=== PATIENT | male | born 1945 | race Caucasian/White ===

== ENCOUNTER 2022-08-23 12:51 | Inpatient (IN) | payer OTHER ==
[~2022-08-23] VITALS: Ht 175.3 cm; Wt 156.9 kg
[2022-08-23 12:55] VITALS: BP_SYST 102
[2022-08-23 14:28] LABS: BASOPHILS % (AUTO) 0.3 % (0.0-2.0); HEMATOCRIT 41.4 % (36-54); HEMOGLOBIN 13.6 g/dL (14.0-18.0); LYMPHOCYTES # (AUTO) 0.3 K/uL (1.0-5.5); LYMPHOCYTES % (AUTO) 4.2 % (20.5-51.5); MEAN CORPUSCULAR HEMOGLOBIN 31 pg (27-31); MEAN CORPUSCULAR HGB CONC 33 % (32-36); MEAN CORPUSCULAR VOLUME 95 fL (79.0-98.0); MONOCYTES # (AUTO) 0.7 K/uL (0.0-1.0); MONOCYTES % (AUTO) 12.2 % (1.7-9.3); NEUTROPHILS # (AUTO) 5.1 K/uL (1.8-7.7); NEUTROPHILS % (AUTO) 83.3 % (40.0-70.0); PLATELET COUNT (AUTO) 124 K/uL (130-430); RED BLOOD CELL COUNT(AUTO) 4.35 MIL/uL (4.2-6.2); RED CELL DISTRIBUTION WIDTH 13.7 % (9.0-15.0); WHITE BLOOD COUNT (AUTO) 6.1 K/uL (4.8-10.8)
[2022-08-23 14:44] LABS: ANION GAP 6 (5-15); CALCIUM 8.9 mg/dL (8.4-11.0); CHLORIDE 103 mmol/L (98-107); GLUCOSE 115 mg/dL (70-99); UREA NITROGEN, BLOOD 29 mg/dL (8-21)
[2022-08-23 15:02] LABS: ALANINE AMINOTRANSFERASE 23 U/L (12-78); ALBUMIN 3.2 g/dL (3.4-4.8); ASPARTATE AMINOTRANSFERASE 40 U/L (10-37); TOTAL BILIRUBIN 0.4 mg/dL (0.0-1.0)
[2022-08-23 15:29] LABS: CKMB RELATIVE INDEX 0.6 (0.0-2.9); CREATINE KINASE MB 7.3 ng/mL (0-3.6)
[2022-08-23] MEDS ORDERED: SACU1TAB7 PO (15:48)
[2022-08-23] MEDS ORDERED: EMPA10TA PO (15:48)
[2022-08-23] MEDS ORDERED: LIP10 PO (15:48)
[2022-08-23] MEDS ORDERED: FURO-150 PO (15:52)
[2022-08-23] MEDS ORDERED: AMIO200T66 PO (15:52)
[2022-08-23] MEDS ORDERED: TAMS-11 PO (15:52)
[2022-08-23] MEDS ORDERED: VITD2000 PO (15:52)
[2022-08-23] MEDS: NACL 0.9% 1,000 ML IV SCH (16:00)
[2022-08-23] MEDS ORDERED: IPRATROPIUM/ALBUTEROL SULFATE 3 ML AMPUL.NEB (DUONEB) INH PRN (17:30)
[2022-08-23 19:41] LABS: BILIRUBIN,URINE NEGATIVE (NEGATIVE); BLOOD, URINE 3+ (NEGATIVE); CLARITY/URINE CLEAR (CLEAR); COLOR,URINE YELLOW (YELLOW); GLUCOSE,URINE 2+ (NEGATIVE); KETONES,URINE TRACE (NEGATIVE); LEUKOCYTE ESTERASE ,URINE NEGATIVE (NEGATIVE); NITRITE, URINE NEGATIVE (NEGATIVE); PH,URINE 5.5 (5.0-8.0); PROTEIN URINE 1+ (NEGATIVE); UROBILINOGEN,URINE 0.2 (0.2-1.0)
[2022-08-23 19:46] LABS: BACTERIA,URINE FEW /HPF (None Seen); FINE GRANULAR CASTS,URINE 0-10 /LPF (None Seen); HYALINE CASTS, URINE 0-10 /LPF (None Seen); MUCUS,URINE None Seen /LPF (None Seen); RBC,URINE NONE SEEN /HPF (0-3); WBC,URINE 0-3 /HPF (0-3)
[2022-08-23] MEDS ORDERED: FUROSEMIDE 20 MG TABLET PO SCH (21:00)
[2022-08-24] MEDS: ATORVASTATIN 10 MG TABLET PO SCH ×2 (00:45→20:14)
[2022-08-24] MEDS: PANTOPRAZOLE SODIUM 40 MG/VIAL (PROTONIX) IVP SCH ×2 (00:45→10:13)
[2022-08-24] MEDS: TAMSULOSIN HCL 0.4 MG CAP PO SCH ×2 (00:45→20:14)
[2022-08-24] MEDS: NACL 0.9% 1,000 ML IV SCH ×2 (01:02→12:04)
[2022-08-24 09:07] LABS: ANION GAP 9 (5-15); CALCIUM 8.1 mg/dL (8.4-11.0); CHLORIDE 108 mmol/L (98-107); CREATININE 2.32 mg/dL (0.55-1.30); GLUCOSE 94 mg/dL (70-99); UREA NITROGEN, BLOOD 30 mg/dL (8-21)
[2022-08-24 09:11] LABS: BASOPHILS % (AUTO) 0.5 % (0.0-2.0); EOSINOPHILS % (AUTO) 0.3 % (0.0-4.0); HEMATOCRIT 40.3 % (36-54); HEMOGLOBIN 13.3 g/dL (14.0-18.0); LYMPHOCYTES # (AUTO) 0.6 K/uL (1.0-5.5); LYMPHOCYTES % (AUTO) 14.9 % (20.5-51.5); MEAN CORPUSCULAR HEMOGLOBIN 32 pg (27-31); MEAN CORPUSCULAR HGB CONC 33 % (32-36); MEAN CORPUSCULAR VOLUME 96 fL (79.0-98.0); MONOCYTES # (AUTO) 0.7 K/uL (0.0-1.0); MONOCYTES % (AUTO) 16.5 % (1.7-9.3); NEUTROPHILS # (AUTO) 2.9 K/uL (1.8-7.7); NEUTROPHILS % (AUTO) 67.8 % (40.0-70.0); PLATELET COUNT (AUTO) 122 K/uL (130-430); RED CELL DISTRIBUTION WIDTH 13.6 % (9.0-15.0)
[2022-08-24 09:18] LABS: ALANINE AMINOTRANSFERASE 32 U/L (12-78); ALBUMIN 2.9 g/dL (3.4-4.8); ASPARTATE AMINOTRANSFERASE 56 U/L (10-37); CHOLESTEROL 118 mg/dL (<200); HDL CHOLESTEROL 64 mg/dL (>45); PHOSPHORUS 4.3 mg/dL (2.7-4.5); THYROID STIMULATING HORMONE < 0.01 uIu/mL (0.34-4.82); TOTAL BILIRUBIN 0.3 mg/dL (0.0-1.0); TRIGLYCERIDES 58 mg/dL (30-150)
[2022-08-24 09:21] LABS: WHITE BLOOD COUNT (AUTO) 4.3 K/uL (4.8-10.8)
[2022-08-24] MEDS: AMIODARONE HCL 200 MG TABLET PO SCH (10:13)
[2022-08-24] MEDS: CHOLECALCIFEROL (VITAMIN D3) 2,000 UNIT TABLET PO SCH (10:14)
[2022-08-24] MEDS ORDERED: POTASSIUM CHLORIDE 40 MEQ in NS 250 ML IV ONE (10:30)
[2022-08-24 12:00] VITALS: BP_SYST 108
[2022-08-24 12:21] VITALS: BP_SYST 109
[2022-08-24 17:32] LABS: FREE T4 (FREE THYROXINE) 1.8 ng/dl (0.8-1.5)
[2022-08-24 18:57] VITALS: BP_SYST 127
[2022-08-24 20:00] VITALS: BP_SYST 112
[2022-08-24] MEDS: SACUBITRIL/VALSARTAN 24 MG-26 MG 1 TABLET PO SCH (20:14)
[2022-08-25] VITALS: BP_SYST 110
[2022-08-25] MEDS: NACL 0.9% 1,000 ML IV SCH (05:42)
[2022-08-25 08:35] LABS: BASOPHILS % (AUTO) 0.5 % (0.0-2.0); EOSINOPHILS % (AUTO) 0.8 % (0.0-4.0); HEMATOCRIT 38.6 % (36-54); HEMOGLOBIN 12.7 g/dL (14.0-18.0); LYMPHOCYTES # (AUTO) 0.6 K/uL (1.0-5.5); LYMPHOCYTES % (AUTO) 12.2 % (20.5-51.5); MEAN CORPUSCULAR HEMOGLOBIN 31 pg (27-31); MEAN CORPUSCULAR HGB CONC 33 % (32-36); MEAN CORPUSCULAR VOLUME 95 fL (79.0-98.0); MONOCYTES # (AUTO) 0.6 K/uL (0.0-1.0); MONOCYTES % (AUTO) 13.6 % (1.7-9.3); NEUTROPHILS # (AUTO) 3.3 K/uL (1.8-7.7); NEUTROPHILS % (AUTO) 72.9 % (40.0-70.0); PLATELET COUNT (AUTO) 110 K/uL (130-430); RED BLOOD CELL COUNT(AUTO) 4.05 MIL/uL (4.2-6.2); RED CELL DISTRIBUTION WIDTH 13.6 % (9.0-15.0); WHITE BLOOD COUNT (AUTO) 4.5 K/uL (4.8-10.8)
[2022-08-25 08:42] VITALS: BP_SYST 124
[2022-08-25 09:19] LABS: ALANINE AMINOTRANSFERASE 38 U/L (12-78); ALBUMIN 2.7 g/dL (3.4-4.8); ANION GAP 8 (5-15); ASPARTATE AMINOTRANSFERASE 56 U/L (10-37); CALCIUM 8.2 mg/dL (8.4-11.0); CHLORIDE 107 mmol/L (98-107); CREATININE 2.41 mg/dL (0.55-1.30); GLUCOSE 97 mg/dL (70-99); PHOSPHORUS 3.7 mg/dL (2.7-4.5); TOTAL BILIRUBIN 0.3 mg/dL (0.0-1.0); UREA NITROGEN, BLOOD 35 mg/dL (8-21)
[2022-08-25] MEDS: AMIODARONE HCL 200 MG TABLET PO SCH (09:48)
[2022-08-25] MEDS: CHOLECALCIFEROL (VITAMIN D3) 2,000 UNIT TABLET PO SCH (09:48)
[2022-08-25] MEDS: PANTOPRAZOLE SODIUM 40 MG/VIAL (PROTONIX) IVP SCH (09:49)
[2022-08-25] MEDS: SACUBITRIL/VALSARTAN 24 MG-26 MG 1 TABLET PO SCH ×2 (10:27→20:18)
[2022-08-25 11:43] VITALS: BP_SYST 114
[2022-08-25 16:49] VITALS: BP_SYST 116
[2022-08-25 20:00] VITALS: BP_SYST 107
[2022-08-25] MEDS: TAMSULOSIN HCL 0.4 MG CAP PO SCH (20:17)
[2022-08-25] MEDS: ATORVASTATIN 10 MG TABLET PO SCH (20:17)
[2022-08-26] VITALS: BP_SYST 113
[2022-08-26 08:30] VITALS: BP_SYST 129
[2022-08-26 08:31] VITALS: BP_SYST 113
[2022-08-26 08:32] LABS: ANION GAP 7 (5-15); CALCIUM 7.7 mg/dL (8.4-11.0); CHLORIDE 106 mmol/L (98-107); CREATININE 2.48 mg/dL (0.55-1.30); GLUCOSE 112 mg/dL (70-99); UREA NITROGEN, BLOOD 35 mg/dL (8-21)
[2022-08-26] MEDS: PANTOPRAZOLE SODIUM 40 MG/VIAL (PROTONIX) IVP SCH (09:57)
[2022-08-26] MEDS: CHOLECALCIFEROL (VITAMIN D3) 2,000 UNIT TABLET PO SCH (09:57)
[2022-08-26] MEDS: SACUBITRIL/VALSARTAN 24 MG-26 MG 1 TABLET PO SCH ×2 (09:58→21:00)
[2022-08-26] MEDS: AMIODARONE HCL 200 MG TABLET PO SCH (09:58)
[2022-08-26 12:45] VITALS: BP_SYST 151
[2022-08-26 16:45] VITALS: BP_SYST 115
[2022-08-26] MEDS: NACL 0.9% 1,000 ML IV SCH (16:50)
[2022-08-26 20:00] VITALS: BP_SYST 126
[2022-08-26] MEDS: ATORVASTATIN 10 MG TABLET PO SCH (23:27)
[2022-08-26] MEDS: TAMSULOSIN HCL 0.4 MG CAP PO SCH (23:27)
[2022-08-27 07:01] LABS: BASOPHILS % (AUTO) 0.4 % (0.0-2.0); EOSINOPHILS # (AUTO) 0.1 K/uL (0.0-0.4); EOSINOPHILS % (AUTO) 3.5 % (0.0-4.0); HEMATOCRIT 36.5 % (36-54); LYMPHOCYTES # (AUTO) 0.6 K/uL (1.0-5.5); MEAN CORPUSCULAR HEMOGLOBIN 31 pg (27-31); MEAN CORPUSCULAR HGB CONC 33 % (32-36); MEAN CORPUSCULAR VOLUME 94 fL (79.0-98.0); MONOCYTES # (AUTO) 0.4 K/uL (0.0-1.0); MONOCYTES % (AUTO) 12.7 % (1.7-9.3); NEUTROPHILS # (AUTO) 2.1 K/uL (1.8-7.7); NEUTROPHILS % (AUTO) 65.4 % (40.0-70.0); PLATELET COUNT (AUTO) 94 K/uL (130-430); RED BLOOD CELL COUNT(AUTO) 3.87 MIL/uL (4.2-6.2); RED CELL DISTRIBUTION WIDTH 13.8 % (9.0-15.0); WHITE BLOOD COUNT (AUTO) 3.2 K/uL (4.8-10.8)
[2022-08-27 07:20] LABS: ANION GAP 5 (5-15); CALCIUM 8.1 mg/dL (8.4-11.0); CHLORIDE 108 mmol/L (98-107); GLUCOSE 106 mg/dL (70-99); UREA NITROGEN, BLOOD 42 mg/dL (8-21)
[2022-08-27] MEDS: NACL 0.9% 1,000 ML IV SCH ×2 (07:55→23:55)
[2022-08-27 08:00] VITALS: BP_SYST 139
[2022-08-27] MEDS: PANTOPRAZOLE SODIUM 40 MG/VIAL (PROTONIX) IVP SCH (08:44)
[2022-08-27] MEDS: AMIODARONE HCL 200 MG TABLET PO SCH (08:45)
[2022-08-27] MEDS: CHOLECALCIFEROL (VITAMIN D3) 2,000 UNIT TABLET PO SCH (08:45)
[2022-08-27] MEDS: SACUBITRIL/VALSARTAN 24 MG-26 MG 1 TABLET PO SCH ×2 (08:45→21:05)
[2022-08-27 12:15] VITALS: BP_SYST 124
[2022-08-27 16:30] VITALS: BP_SYST 119
[2022-08-27 20:00] VITALS: BP_SYST 118
[2022-08-27] MEDS: TAMSULOSIN HCL 0.4 MG CAP PO SCH (21:06)
[2022-08-27] MEDS: ATORVASTATIN 10 MG TABLET PO SCH (21:06)
[2022-08-28 00:55] VITALS: BP_SYST 133
[2022-08-28 06:42] LABS: ANION GAP 7 (5-15); CALCIUM 7.8 mg/dL (8.4-11.0); CHLORIDE 108 mmol/L (98-107); CREATININE 2.06 mg/dL (0.55-1.30); GLUCOSE 107 mg/dL (70-99); UREA NITROGEN, BLOOD 39 mg/dL (8-21)
[2022-08-28 08:00] VITALS: BP_SYST 138
[2022-08-28 08:15] LABS: BASOPHILS % (AUTO) 0.5 % (0.0-2.0); EOSINOPHILS # (AUTO) 0.1 K/uL (0.0-0.4); HEMATOCRIT 37.7 % (36-54); HEMOGLOBIN 12.5 g/dL (14.0-18.0); LYMPHOCYTES # (AUTO) 0.5 K/uL (1.0-5.5); LYMPHOCYTES % (AUTO) 14.6 % (20.5-51.5); MEAN CORPUSCULAR HEMOGLOBIN 31 pg (27-31); MEAN CORPUSCULAR HGB CONC 33 % (32-36); MEAN CORPUSCULAR VOLUME 94 fL (79.0-98.0); MONOCYTES # (AUTO) 0.3 K/uL (0.0-1.0); MONOCYTES % (AUTO) 10.1 % (1.7-9.3); NEUTROPHILS # (AUTO) 2.4 K/uL (1.8-7.7); NEUTROPHILS % (AUTO) 70.8 % (40.0-70.0); PLATELET COUNT (AUTO) 96 K/uL (130-430); RED BLOOD CELL COUNT(AUTO) 4.01 MIL/uL (4.2-6.2)
[2022-08-28 08:16] LABS: WHITE BLOOD COUNT (AUTO) 3.5 K/uL (4.8-10.8)
[2022-08-28] MEDS: SACUBITRIL/VALSARTAN 24 MG-26 MG 1 TABLET PO SCH ×2 (10:28→20:58)
[2022-08-28] MEDS: AMIODARONE HCL 200 MG TABLET PO SCH (10:31)
[2022-08-28] MEDS: PANTOPRAZOLE SODIUM 40 MG/VIAL (PROTONIX) IVP SCH (10:32)
[2022-08-28] MEDS: CHOLECALCIFEROL (VITAMIN D3) 2,000 UNIT TABLET PO SCH (10:32)
[2022-08-28 11:35] VITALS: BP_SYST 104
[2022-08-28 16:41] VITALS: BP_SYST 125
[2022-08-28 20:00] VITALS: BP_SYST 144
[2022-08-28] MEDS: TAMSULOSIN HCL 0.4 MG CAP PO SCH (20:57)
[2022-08-28] MEDS: ATORVASTATIN 10 MG TABLET PO SCH (20:57)
[2022-08-29 02:05] VITALS: BP_SYST 93
[2022-08-29] MEDS: DEXAMETHASONE SOD PHOSPHATE 10 MG/ML VIAL IVP SCH (04:45)
[2022-08-29 08:00] VITALS: BP_SYST 127
[2022-08-29 08:15] LABS: ANION GAP 7 (5-15); CALCIUM 8.7 mg/dL (8.4-11.0); CHLORIDE 108 mmol/L (98-107); CREATININE 1.92 mg/dL (0.55-1.30); GLUCOSE 113 mg/dL (70-99); UREA NITROGEN, BLOOD 35 mg/dL (8-21)
[2022-08-29] MEDS: SACUBITRIL/VALSARTAN 24 MG-26 MG 1 TABLET PO SCH ×2 (10:16→22:40)
[2022-08-29] MEDS: PANTOPRAZOLE SODIUM 40 MG/VIAL (PROTONIX) IVP SCH (10:16)
[2022-08-29] MEDS: AMIODARONE HCL 200 MG TABLET PO SCH (10:17)
[2022-08-29] MEDS: CHOLECALCIFEROL (VITAMIN D3) 2,000 UNIT TABLET PO SCH (10:17)
[2022-08-29 13:38] VITALS: BP_SYST 136
[2022-08-29 20:00] VITALS: BP_SYST 136
[2022-08-29] MEDS ORDERED: FUROSEMIDE 40 MG/4 ML VIAL IVP ONE (20:45)
[2022-08-29] MEDS: ALBUMIN HUMAN 25% 50 ML IV SCH (20:45)
[2022-08-29] MEDS ORDERED: SODIUM ZIRCONIUM CYCLOSILICATE 10 GM POWD.PACK PO ONE (21:30)
[2022-08-29] MEDS: PANTOPRAZOLE SODIUM 40 MG TAB PO SCH (21:39)
[2022-08-29] MEDS: TAMSULOSIN HCL 0.4 MG CAP PO SCH (21:39)
[2022-08-29] MEDS: ATORVASTATIN 10 MG TABLET PO SCH (21:40)
[2022-08-30] VITALS: BP_SYST 123
[2022-08-30] MEDS: ALBUMIN HUMAN 25% 50 ML IV SCH ×3 (02:45→18:08)
[2022-08-30] MEDS: DEXAMETHASONE SOD PHOSPHATE 10 MG/ML VIAL IVP SCH (03:22)
[2022-08-30] MEDS: AMIODARONE HCL 200 MG TABLET PO SCH (09:00)
[2022-08-30] MEDS: PANTOPRAZOLE SODIUM 40 MG TAB PO SCH ×2 (09:06→20:13)
[2022-08-30 09:07] VITALS: BP_SYST 95
[2022-08-30] MEDS: SACUBITRIL/VALSARTAN 24 MG-26 MG 1 TABLET PO SCH ×2 (09:07→20:13)
[2022-08-30] MEDS: CHOLECALCIFEROL (VITAMIN D3) 2,000 UNIT TABLET PO SCH (09:07)
[2022-08-30 12:00] VITALS: BP_SYST 100
[2022-08-30] MEDS ORDERED: FUROSEMIDE 40 MG/4 ML VIAL IVP ONE (13:15)
[2022-08-30 16:00] VITALS: BP_SYST 108
[2022-08-30 20:00] VITALS: BP_SYST 122
[2022-08-30] MEDS: TAMSULOSIN HCL 0.4 MG CAP PO SCH (20:12)
[2022-08-30] MEDS: ATORVASTATIN 10 MG TABLET PO SCH (20:12)
[2022-08-31 00:35] VITALS: BP_SYST 97
[2022-08-31] MEDS ORDERED: ALBUMIN HUMAN 25% 100 ML IV ONE (03:43)
[2022-08-31] MEDS: DEXAMETHASONE SOD PHOSPHATE 10 MG/ML VIAL IVP SCH (04:20)
[2022-08-31 06:40] LABS: BASOPHILS % (AUTO) 0.4 % (0.0-2.0); EOSINOPHILS # (AUTO) 0.2 K/uL (0.0-0.4); EOSINOPHILS % (AUTO) 5.5 % (0.0-4.0); HEMATOCRIT 36.7 % (36-54); LYMPHOCYTES # (AUTO) 0.6 K/uL (1.0-5.5); LYMPHOCYTES % (AUTO) 14.3 % (20.5-51.5); MEAN CORPUSCULAR HEMOGLOBIN 31 pg (27-31); MEAN CORPUSCULAR HGB CONC 33 % (32-36); MEAN CORPUSCULAR VOLUME 94 fL (79.0-98.0); MONOCYTES # (AUTO) 0.7 K/uL (0.0-1.0); MONOCYTES % (AUTO) 16.3 % (1.7-9.3); NEUTROPHILS # (AUTO) 2.8 K/uL (1.8-7.7); NEUTROPHILS % (AUTO) 63.5 % (40.0-70.0); PLATELET COUNT (AUTO) 136 K/uL (130-430); RED CELL DISTRIBUTION WIDTH 14.2 % (9.0-15.0); WHITE BLOOD COUNT (AUTO) 4.4 K/uL (4.8-10.8)
[2022-08-31 07:55] LABS: ANION GAP 6 (5-15); CALCIUM 8.4 mg/dL (8.4-11.0); CHLORIDE 108 mmol/L (98-107); CREATININE 3.04 mg/dL (0.55-1.30); GLUCOSE 107 mg/dL (70-99); UREA NITROGEN, BLOOD 52 mg/dL (8-21)
[2022-08-31 08:35] VITALS: BP_SYST 120
[2022-08-31] MEDS: AMIODARONE HCL 200 MG TABLET PO SCH (08:37)
[2022-08-31] MEDS: CHOLECALCIFEROL (VITAMIN D3) 2,000 UNIT TABLET PO SCH (08:38)
[2022-08-31] MEDS: PANTOPRAZOLE SODIUM 40 MG TAB PO SCH (08:38)
[2022-08-31] MEDS: SACUBITRIL/VALSARTAN 24 MG-26 MG 1 TABLET PO SCH (09:02)
[2022-08-31 12:00] VITALS: BP_SYST 123
[2022-08-31] MEDS ORDERED: 0.45% NS 500 ML IV ONE (13:30)
[2022-08-31 16:00] VITALS: BP_SYST 140
[2022-09-01] MEDS: TAMSULOSIN HCL 0.4 MG CAP PO SCH ×2 (00:11→22:43)
[2022-09-01] MEDS: ATORVASTATIN 10 MG TABLET PO SCH ×2 (00:11→22:43)
[2022-09-01] MEDS: PANTOPRAZOLE SODIUM 40 MG TAB PO SCH ×3 (00:11→22:43)
[2022-09-01 01:06] VITALS: BP_SYST 139
[2022-09-01 08:00] VITALS: BP_SYST 124
[2022-09-01] MEDS: AMIODARONE HCL 200 MG TABLET PO SCH (09:28)
[2022-09-01 09:30] LABS: BASOPHILS % (AUTO) 0.1 % (0.0-2.0); EOSINOPHILS % (AUTO) 0.1 % (0.0-4.0); HEMATOCRIT 38.9 % (36-54); HEMOGLOBIN 12.9 g/dL (14.0-18.0); LYMPHOCYTES # (AUTO) 0.5 K/uL (1.0-5.5); LYMPHOCYTES % (AUTO) 8.5 % (20.5-51.5); MEAN CORPUSCULAR HEMOGLOBIN 31 pg (27-31); MEAN CORPUSCULAR HGB CONC 33 % (32-36); MEAN CORPUSCULAR VOLUME 93 fL (79.0-98.0); MONOCYTES # (AUTO) 0.8 K/uL (0.0-1.0); MONOCYTES % (AUTO) 12.8 % (1.7-9.3); NEUTROPHILS # (AUTO) 4.8 K/uL (1.8-7.7); NEUTROPHILS % (AUTO) 78.5 % (40.0-70.0); PLATELET COUNT (AUTO) 197 K/uL (130-430); RED BLOOD CELL COUNT(AUTO) 4.16 MIL/uL (4.2-6.2)
[2022-09-01 09:34] LABS: WHITE BLOOD COUNT (AUTO) 6.1 K/uL (4.8-10.8)
[2022-09-01 09:41] LABS: ANION GAP 8 (5-15); CHLORIDE 110 mmol/L (98-107); CREATININE 2.69 mg/dL (0.55-1.30); GLUCOSE 160 mg/dL (70-99); UREA NITROGEN, BLOOD 54 mg/dL (8-21)
[2022-09-01] MEDS: CHOLECALCIFEROL (VITAMIN D3) 2,000 UNIT TABLET PO SCH (09:42)
[2022-09-01] MEDS: DEXAMETHASONE SOD PHOSPHATE 10 MG/ML VIAL IVP SCH (09:42)
[2022-09-01 09:47] LABS: ALANINE AMINOTRANSFERASE 31 U/L (12-78); ALBUMIN 2.5 g/dL (3.4-4.8); ASPARTATE AMINOTRANSFERASE 27 U/L (10-37); TOTAL BILIRUBIN 0.4 mg/dL (0.0-1.0)
[2022-09-01 11:30] VITALS: BP_SYST 142
[2022-09-01 15:31] VITALS: BP_SYST 143
[2022-09-02] VITALS (7 sets, daily range): BP systolic 118–157
[2022-09-02] MEDS: DEXAMETHASONE SOD PHOSPHATE 10 MG/ML VIAL IVP SCH ×2 (04:45→12:22)
[2022-09-02 07:22] LABS: BASOPHILS % (AUTO) 0.1 % (0.0-2.0); HEMATOCRIT 39.3 % (36-54); HEMOGLOBIN 13.1 g/dL (14.0-18.0); LYMPHOCYTES # (AUTO) 0.3 K/uL (1.0-5.5); LYMPHOCYTES % (AUTO) 4.8 % (20.5-51.5); MEAN CORPUSCULAR HEMOGLOBIN 31 pg (27-31); MEAN CORPUSCULAR HGB CONC 33 % (32-36); MEAN CORPUSCULAR VOLUME 94 fL (79.0-98.0); MONOCYTES % (AUTO) 14.3 % (1.7-9.3); NEUTROPHILS # (AUTO) 5.6 K/uL (1.8-7.7); NEUTROPHILS % (AUTO) 80.8 % (40.0-70.0); PLATELET COUNT (AUTO) 234 K/uL (130-430); RED CELL DISTRIBUTION WIDTH 13.5 % (9.0-15.0)
[2022-09-02 07:35] LABS: ANION GAP 8 (5-15); CALCIUM 8.5 mg/dL (8.4-11.0); CHLORIDE 111 mmol/L (98-107); CREATININE 2.48 mg/dL (0.55-1.30); GLUCOSE 144 mg/dL (70-99); UREA NITROGEN, BLOOD 52 mg/dL (8-21)
[2022-09-02] MEDS: AMIODARONE HCL 200 MG TABLET PO SCH (08:11)
[2022-09-02] MEDS: CHOLECALCIFEROL (VITAMIN D3) 2,000 UNIT TABLET PO SCH (08:12)
[2022-09-02] MEDS: PANTOPRAZOLE SODIUM 40 MG TAB PO SCH ×2 (08:12→20:40)
[2022-09-02] MEDS: ATORVASTATIN 10 MG TABLET PO SCH (20:40)
[2022-09-02] MEDS: TAMSULOSIN HCL 0.4 MG CAP PO SCH (20:40)
[2022-09-03] MEDS: DEXAMETHASONE SOD PHOSPHATE 10 MG/ML VIAL IVP SCH (04:19)
[2022-09-03 04:36] VITALS: BP_SYST 146
[2022-09-03 07:38] LABS: ANION GAP 8 (5-15); BASOPHILS % (AUTO) 0.1 % (0.0-2.0); CALCIUM 8.2 mg/dL (8.4-11.0); CHLORIDE 110 mmol/L (98-107); CREATININE 2.25 mg/dL (0.55-1.30); EOSINOPHILS % (AUTO) 0.1 % (0.0-4.0); GLUCOSE 157 mg/dL (70-99); HEMATOCRIT 40.8 % (36-54); HEMOGLOBIN 13.5 g/dL (14.0-18.0); LYMPHOCYTES # (AUTO) 0.3 K/uL (1.0-5.5); LYMPHOCYTES % (AUTO) 3.3 % (20.5-51.5); MEAN CORPUSCULAR HEMOGLOBIN 31 pg (27-31); MEAN CORPUSCULAR HGB CONC 33 % (32-36); MEAN CORPUSCULAR VOLUME 93 fL (79.0-98.0); MONOCYTES # (AUTO) 0.8 K/uL (0.0-1.0); MONOCYTES % (AUTO) 9.5 % (1.7-9.3); NEUTROPHILS # (AUTO) 7.4 K/uL (1.8-7.7); PLATELET COUNT (AUTO) 227 K/uL (130-430); RED CELL DISTRIBUTION WIDTH 13.7 % (9.0-15.0); UREA NITROGEN, BLOOD 47 mg/dL (8-21); WHITE BLOOD COUNT (AUTO) 8.5 K/uL (4.8-10.8)
[2022-09-03 08:00] VITALS: BP_SYST 141
[2022-09-03] MEDS: PANTOPRAZOLE SODIUM 40 MG TAB PO SCH ×2 (08:55→21:20)
[2022-09-03] MEDS: AMIODARONE HCL 200 MG TABLET PO SCH (08:56)
[2022-09-03] MEDS: CHOLECALCIFEROL (VITAMIN D3) 2,000 UNIT TABLET PO SCH (08:56)
[2022-09-03 12:34] VITALS: BP_SYST 135
[2022-09-03] MEDS: LEVOFLOXACIN 250 MG/D5W 50 ML IV SCH (15:30)
[2022-09-03 21:00] VITALS: BP_SYST 154
[2022-09-03] MEDS: ATORVASTATIN 10 MG TABLET PO SCH (21:20)
[2022-09-03] MEDS: TAMSULOSIN HCL 0.4 MG CAP PO SCH (21:20)
[2022-09-04 00:59] VITALS: BP_SYST 118
[2022-09-04] MEDS: DEXAMETHASONE SOD PHOSPHATE 10 MG/ML VIAL IVP SCH (04:18)
[2022-09-04 08:55] LABS: ANION GAP 6 (5-15); CALCIUM 9.6 mg/dL (8.4-11.0); CHLORIDE 110 mmol/L (98-107); CREATININE 2.07 mg/dL (0.55-1.30); GLUCOSE 146 mg/dL (70-99); UREA NITROGEN, BLOOD 41 mg/dL (8-21)
[2022-09-04] MEDS: PANTOPRAZOLE SODIUM 40 MG TAB PO SCH ×2 (08:59→22:27)
[2022-09-04] MEDS: AMIODARONE HCL 200 MG TABLET PO SCH (09:00)
[2022-09-04] MEDS: CHOLECALCIFEROL (VITAMIN D3) 2,000 UNIT TABLET PO SCH (09:01)
[2022-09-04 11:31] VITALS: BP_SYST 122
[2022-09-04 11:38] VITALS: BP_SYST 116
[2022-09-04 14:59] VITALS: BP_SYST 112
[2022-09-04] MEDS: LEVOFLOXACIN 250 MG/D5W 50 ML IV SCH (16:31)
[2022-09-04 22:00] VITALS: BP_SYST 104
[2022-09-04] MEDS: ATORVASTATIN 10 MG TABLET PO SCH (22:27)
[2022-09-04] MEDS: TAMSULOSIN HCL 0.4 MG CAP PO SCH (22:27)
[2022-09-05 00:36] VITALS: BP_SYST 116
[2022-09-05 01:00] VITALS: BP_SYST 128
[2022-09-05] MEDS: DEXAMETHASONE SOD PHOSPHATE 10 MG/ML VIAL IVP SCH (06:07)
[2022-09-05 09:10] VITALS: BP_SYST 127
[2022-09-05] MEDS: AMIODARONE HCL 200 MG TABLET PO SCH (09:19)
[2022-09-05] MEDS: CHOLECALCIFEROL (VITAMIN D3) 2,000 UNIT TABLET PO SCH (09:19)
[2022-09-05] MEDS: PANTOPRAZOLE SODIUM 40 MG TAB PO SCH ×2 (09:19→21:00)
[2022-09-05 11:25] VITALS: BP_SYST 128
[2022-09-05 15:54] VITALS: BP_SYST 133
[2022-09-05] MEDS: LEVOFLOXACIN 250 MG/D5W 50 ML IV SCH (16:49)
[2022-09-05] MEDS: D5/0.45 NS 1,000 ML IV SCH (19:25)
[2022-09-05 20:00] VITALS: BP_SYST 113
[2022-09-05] MEDS: ATORVASTATIN 10 MG TABLET PO SCH (21:00)
[2022-09-05] MEDS: TAMSULOSIN HCL 0.4 MG CAP PO SCH (21:00)
[2022-09-06] VITALS: BP_SYST 120
[2022-09-06] MEDS: PANTOPRAZOLE SODIUM 40 MG TAB PO SCH ×2 (08:27→22:52)
[2022-09-06] MEDS: CHOLECALCIFEROL (VITAMIN D3) 2,000 UNIT TABLET PO SCH (08:28)
[2022-09-06] MEDS: AMIODARONE HCL 200 MG TABLET PO SCH (08:28)
[2022-09-06] MEDS: DECADRON 4 MG TABLET PO SCH (08:28)
[2022-09-06 08:34] VITALS: BP_SYST 125
[2022-09-06 11:17] LABS: BASOPHILS % (AUTO) 0.2 % (0.0-2.0); EOSINOPHILS # (AUTO) 0.2 K/uL (0.0-0.4); EOSINOPHILS % (AUTO) 2.1 % (0.0-4.0); HEMATOCRIT 37.7 % (36-54); HEMOGLOBIN 12.3 g/dL (14.0-18.0); LYMPHOCYTES # (AUTO) 0.4 K/uL (1.0-5.5); LYMPHOCYTES % (AUTO) 4.8 % (20.5-51.5); MEAN CORPUSCULAR HEMOGLOBIN 31 pg (27-31); MEAN CORPUSCULAR HGB CONC 33 % (32-36); MEAN CORPUSCULAR VOLUME 94 fL (79.0-98.0); MONOCYTES % (AUTO) 10.8 % (1.7-9.3); NEUTROPHILS # (AUTO) 7.3 K/uL (1.8-7.7); NEUTROPHILS % (AUTO) 82.1 % (40.0-70.0); PLATELET COUNT (AUTO) 191 K/uL (130-430); WHITE BLOOD COUNT (AUTO) 8.9 K/uL (4.8-10.8)
[2022-09-06 11:35] VITALS: BP_SYST 110
[2022-09-06 11:42] LABS: ALANINE AMINOTRANSFERASE 23 U/L (12-78); ALBUMIN 2.5 g/dL (3.4-4.8); ANION GAP 4 (5-15); ASPARTATE AMINOTRANSFERASE 14 U/L (10-37); CALCIUM 8.3 mg/dL (8.4-11.0); CHLORIDE 107 mmol/L (98-107); CREATININE 2.51 mg/dL (0.55-1.30); GLUCOSE 207 mg/dL (70-99); PHOSPHORUS 2.7 mg/dL (2.7-4.5); TOTAL BILIRUBIN 0.4 mg/dL (0.0-1.0); UREA NITROGEN, BLOOD 48 mg/dL (8-21)
[2022-09-06] MEDS ORDERED: SODIUM POLYSTYRENE SULFONATE 15 GM/60 ML UDBTL PO ONE (13:30)
[2022-09-06] MEDS: LEVOFLOXACIN 250 MG/D5W 50 ML IV SCH (15:02)
[2022-09-06 16:41] VITALS: BP_SYST 133
[2022-09-06] MEDS: D5/0.45 NS 1,000 ML IV SCH ×2 (17:44→22:55)
[2022-09-06 20:15] VITALS: BP_SYST 136
[2022-09-06] MEDS: ATORVASTATIN 10 MG TABLET PO SCH (22:51)
[2022-09-06] MEDS: TAMSULOSIN HCL 0.4 MG CAP PO SCH (22:51)
[2022-09-07 08:19] LABS: ANION GAP 7 (5-15); CALCIUM 7.9 mg/dL (8.4-11.0); CHLORIDE 105 mmol/L (98-107); CREATININE 1.98 mg/dL (0.55-1.30); GLUCOSE 143 mg/dL (70-99); UREA NITROGEN, BLOOD 44 mg/dL (8-21)
[2022-09-07] MEDS: PANTOPRAZOLE SODIUM 40 MG TAB PO SCH ×2 (09:00→22:07)
[2022-09-07] MEDS: AMIODARONE HCL 200 MG TABLET PO SCH (09:00)
[2022-09-07] MEDS: CHOLECALCIFEROL (VITAMIN D3) 2,000 UNIT TABLET PO SCH (10:46)
[2022-09-07] MEDS: DECADRON 4 MG TABLET PO SCH (10:46)
[2022-09-07 10:49] VITALS: BP_SYST 120
[2022-09-07 11:31] VITALS: BP_SYST 106
[2022-09-07 11:55] VITALS: BP_SYST 106
[2022-09-07 16:09] VITALS: BP_SYST 121
[2022-09-07] MEDS: LEVOFLOXACIN 250 MG/D5W 50 ML IV SCH (18:43)
[2022-09-07] MEDS: ATORVASTATIN 10 MG TABLET PO SCH (22:08)
[2022-09-07] MEDS: TAMSULOSIN HCL 0.4 MG CAP PO SCH (22:08)
[2022-09-08 01:20] VITALS: BP_SYST 137
[2022-09-08 08:10] VITALS: BP_SYST 127
[2022-09-08] MEDS: AMIODARONE HCL 200 MG TABLET PO SCH (08:14)
[2022-09-08] MEDS: CHOLECALCIFEROL (VITAMIN D3) 2,000 UNIT TABLET PO SCH (08:15)
[2022-09-08] MEDS: DECADRON 4 MG TABLET PO SCH (08:15)
[2022-09-08] MEDS: PANTOPRAZOLE SODIUM 40 MG TAB PO SCH ×2 (08:15→21:46)
[2022-09-08] MEDS: LEVOFLOXACIN 250 MG/D5W 50 ML IV SCH (18:13)
[2022-09-08] MEDS: D5/0.45 NS 1,000 ML IV SCH (18:20)
[2022-09-08 19:49] VITALS: BP_SYST 132
[2022-09-08 20:36] VITALS: BP_SYST 132
[2022-09-08] MEDS: TAMSULOSIN HCL 0.4 MG CAP PO SCH (21:45)
[2022-09-08] MEDS: ATORVASTATIN 10 MG TABLET PO SCH (21:46)
[2022-09-09 00:52] VITALS: BP_SYST 129
[2022-09-09 08:00] VITALS: BP_SYST 135
[2022-09-09 09:08] LABS: ANION GAP 4 (5-15); CALCIUM 7.9 mg/dL (8.4-11.0); CHLORIDE 109 mmol/L (98-107); CREATININE 2.07 mg/dL (0.55-1.30); GLUCOSE 126 mg/dL (70-99); UREA NITROGEN, BLOOD 42 mg/dL (8-21)
[2022-09-09] MEDS: DECADRON 4 MG TABLET PO SCH (09:13)
[2022-09-09] MEDS: CHOLECALCIFEROL (VITAMIN D3) 2,000 UNIT TABLET PO SCH (09:13)
[2022-09-09] MEDS: PANTOPRAZOLE SODIUM 40 MG TAB PO SCH (09:13)
[2022-09-09] MEDS: AMIODARONE HCL 200 MG TABLET PO SCH (09:15)
[2022-09-09 13:48] VITALS: BP_SYST 120
[2022-09-09] MEDS: LEVOFLOXACIN 250 MG/D5W 50 ML IV SCH (17:16)
[2022-09-09 18:28] VITALS: BP_SYST 120
[2022-09-09 20:00] VITALS: BP_SYST 124
[2022-09-10] MEDS: TAMSULOSIN HCL 0.4 MG CAP PO SCH (01:28)
[2022-09-10] MEDS: PANTOPRAZOLE SODIUM 40 MG TAB PO SCH ×2 (01:29→09:01)
[2022-09-10] MEDS: ATORVASTATIN 10 MG TABLET PO SCH (01:40)
[2022-09-10] MEDS: D5/0.45 NS 1,000 ML IV SCH ×2 (01:41→18:23)
[2022-09-10 08:22] VITALS: BP_SYST 127
[2022-09-10 08:37] VITALS: BP_SYST 127
[2022-09-10] MEDS: CHOLECALCIFEROL (VITAMIN D3) 2,000 UNIT TABLET PO SCH (09:00)
[2022-09-10] MEDS: DECADRON 4 MG TABLET PO SCH (09:01)
[2022-09-10] MEDS: AMIODARONE HCL 200 MG TABLET PO SCH (09:01)
[2022-09-10 11:14] VITALS: BP_SYST 103
[2022-09-10 15:52] VITALS: BP_SYST 118
[2022-09-11] MEDS: TAMSULOSIN HCL 0.4 MG CAP PO SCH ×2 (00:30→23:02)
[2022-09-11] MEDS: PANTOPRAZOLE SODIUM 40 MG TAB PO SCH ×3 (00:30→23:02)
[2022-09-11] MEDS: ATORVASTATIN 10 MG TABLET PO SCH ×2 (00:30→23:08)
[2022-09-11 06:41] LABS: BASOPHILS % (AUTO) 0.5 % (0.0-2.0); EOSINOPHILS % (AUTO) 0.4 % (0.0-4.0); HEMATOCRIT 34.5 % (36-54); HEMOGLOBIN 11.4 g/dL (14.0-18.0); LYMPHOCYTES # (AUTO) 0.4 K/uL (1.0-5.5); LYMPHOCYTES % (AUTO) 4.8 % (20.5-51.5); MEAN CORPUSCULAR HEMOGLOBIN 31 pg (27-31); MEAN CORPUSCULAR HGB CONC 33 % (32-36); MEAN CORPUSCULAR VOLUME 93 fL (79.0-98.0); MONOCYTES # (AUTO) 0.8 K/uL (0.0-1.0); MONOCYTES % (AUTO) 9.3 % (1.7-9.3); NEUTROPHILS # (AUTO) 7.7 K/uL (1.8-7.7); PLATELET COUNT (AUTO) 201 K/uL (130-430); RED BLOOD CELL COUNT(AUTO) 3.73 MIL/uL (4.2-6.2); RED CELL DISTRIBUTION WIDTH 13.3 % (9.0-15.0)
[2022-09-11 07:07] LABS: ANION GAP 7 (5-15); CALCIUM 8.2 mg/dL (8.4-11.0); CHLORIDE 108 mmol/L (98-107); CREATININE 1.59 mg/dL (0.55-1.30); GLUCOSE 132 mg/dL (70-99); UREA NITROGEN, BLOOD 36 mg/dL (8-21)
[2022-09-11 07:54] VITALS: BP_SYST 156
[2022-09-11] MEDS: DECADRON 4 MG TABLET PO SCH (09:15)
[2022-09-11] MEDS: AMIODARONE HCL 200 MG TABLET PO SCH (09:15)
[2022-09-11] MEDS: CHOLECALCIFEROL (VITAMIN D3) 2,000 UNIT TABLET PO SCH (09:15)
[2022-09-11 11:05] VITALS: BP_SYST 141
[2022-09-11 15:15] VITALS: BP_SYST 130
[2022-09-11 20:00] VITALS: BP_SYST 152
[2022-09-12 00:14] VITALS: BP_SYST 151
[2022-09-12 06:40] LABS: ANION GAP 3 (5-15); CALCIUM 8.3 mg/dL (8.4-11.0); CHLORIDE 104 mmol/L (98-107); CREATININE 1.51 mg/dL (0.55-1.30); GLUCOSE 125 mg/dL (70-99); UREA NITROGEN, BLOOD 36 mg/dL (8-21)
[2022-09-12 07:25] VITALS: BP_SYST 136
[2022-09-12] MEDS: PANTOPRAZOLE SODIUM 40 MG TAB PO SCH ×2 (08:18→21:13)
[2022-09-12] MEDS: CHOLECALCIFEROL (VITAMIN D3) 2,000 UNIT TABLET PO SCH (08:19)
[2022-09-12] MEDS: DECADRON 4 MG TABLET PO SCH (08:19)
[2022-09-12] MEDS: AMIODARONE HCL 200 MG TABLET PO SCH (08:19)
[2022-09-12 12:05] VITALS: BP_SYST 129
[2022-09-12 15:40] VITALS: BP_SYST 144
[2022-09-12 20:00] VITALS: BP_SYST 153
[2022-09-12] MEDS: TAMSULOSIN HCL 0.4 MG CAP PO SCH (21:13)
[2022-09-12] MEDS: ATORVASTATIN 10 MG TABLET PO SCH (21:13)
[2022-09-13] VITALS: BP_SYST 140
[2022-09-13 08:16] LABS: BASOPHILS % (AUTO) 0.3 % (0.0-2.0); EOSINOPHILS # (AUTO) 0.1 K/uL (0.0-0.4); EOSINOPHILS % (AUTO) 1.1 % (0.0-4.0); HEMATOCRIT 36.7 % (36-54); HEMOGLOBIN 12.1 g/dL (14.0-18.0); LYMPHOCYTES # (AUTO) 0.7 K/uL (1.0-5.5); LYMPHOCYTES % (AUTO) 7.9 % (20.5-51.5); MEAN CORPUSCULAR HEMOGLOBIN 31 pg (27-31); MEAN CORPUSCULAR HGB CONC 33 % (32-36); MEAN CORPUSCULAR VOLUME 92 fL (79.0-98.0); MONOCYTES # (AUTO) 0.7 K/uL (0.0-1.0); MONOCYTES % (AUTO) 7.9 % (1.7-9.3); NEUTROPHILS # (AUTO) 7.4 K/uL (1.8-7.7); NEUTROPHILS % (AUTO) 82.8 % (40.0-70.0); PLATELET COUNT (AUTO) 212 K/uL (130-430); RED BLOOD CELL COUNT(AUTO) 3.98 MIL/uL (4.2-6.2); RED CELL DISTRIBUTION WIDTH 13.7 % (9.0-15.0); WHITE BLOOD COUNT (AUTO) 8.9 K/uL (4.8-10.8)
[2022-09-13 08:58] LABS: ANION GAP 3 (5-15); CALCIUM 8.9 mg/dL (8.4-11.0); CHLORIDE 105 mmol/L (98-107); CREATININE 1.63 mg/dL (0.55-1.30); GLUCOSE 102 mg/dL (70-99); UREA NITROGEN, BLOOD 37 mg/dL (8-21)
[2022-09-13 12:00] VITALS: BP_SYST 110
[2022-09-13] MEDS: PANTOPRAZOLE SODIUM 40 MG TAB PO SCH ×2 (12:26→21:08)
[2022-09-13] MEDS: CHOLECALCIFEROL (VITAMIN D3) 2,000 UNIT TABLET PO SCH (12:26)
[2022-09-13] MEDS: DEXAMETHASONE 1 MG TABLET (DECADRON) PO SCH (12:26)
[2022-09-13] MEDS: AMIODARONE HCL 200 MG TABLET PO SCH (12:27)
[2022-09-13 16:57] VITALS: BP_SYST 147
[2022-09-13 17:53] VITALS: BP_SYST 147
[2022-09-13 20:05] VITALS: BP_SYST 129
[2022-09-13] MEDS: TAMSULOSIN HCL 0.4 MG CAP PO SCH (21:08)
[2022-09-13] MEDS: ATORVASTATIN 10 MG TABLET PO SCH (21:08)
[2022-09-14 00:32] VITALS: BP_SYST 132
[2022-09-14 08:14] VITALS: BP_SYST 131
[2022-09-14] MEDS: CHOLECALCIFEROL (VITAMIN D3) 2,000 UNIT TABLET PO SCH (08:15)
[2022-09-14] MEDS: PANTOPRAZOLE SODIUM 40 MG TAB PO SCH ×2 (08:16→21:22)
[2022-09-14] MEDS: AMIODARONE HCL 200 MG TABLET PO SCH (08:16)
[2022-09-14] MEDS: DEXAMETHASONE 1 MG TABLET (DECADRON) PO SCH (08:16)
[2022-09-14 12:00] VITALS: BP_SYST 125
[2022-09-14 16:00] VITALS: BP_SYST 133
[2022-09-14] MEDS ORDERED: FUROSEMIDE 40 MG/4 ML VIAL IVP ONE (18:45)
[2022-09-14] MEDS: DOCUSATE SODIUM 100 MG/10 ML UDC PO SCH ×2 (18:59→21:00)
[2022-09-14 20:36] VITALS: BP_SYST 154
[2022-09-14] MEDS: ATORVASTATIN 10 MG TABLET PO SCH (21:22)
[2022-09-14] MEDS: TAMSULOSIN HCL 0.4 MG CAP PO SCH (21:22)
[2022-09-15 08:00] VITALS: BP_SYST 136
[2022-09-15] MEDS: CHOLECALCIFEROL (VITAMIN D3) 2,000 UNIT TABLET PO SCH (08:18)
[2022-09-15] MEDS: DOCUSATE SODIUM 100 MG/10 ML UDC PO SCH ×2 (08:18→21:25)
[2022-09-15] MEDS: PANTOPRAZOLE SODIUM 40 MG TAB PO SCH ×2 (08:18→21:25)
[2022-09-15] MEDS: AMIODARONE HCL 200 MG TABLET PO SCH (08:24)
[2022-09-15] MEDS: DEXAMETHASONE 1 MG TABLET (DECADRON) PO SCH (08:24)
[2022-09-15 12:00] VITALS: BP_SYST 123
[2022-09-15 16:00] VITALS: BP_SYST 127
[2022-09-15 20:00] VITALS: BP_SYST 118
[2022-09-15] MEDS: TAMSULOSIN HCL 0.4 MG CAP PO SCH (21:25)
[2022-09-15] MEDS: ATORVASTATIN 10 MG TABLET PO SCH (21:27)
[2022-09-16] VITALS (7 sets, daily range): BP systolic 121–137
[2022-09-16 06:19] LABS: BASOPHILS % (AUTO) 0.3 % (0.0-2.0); EOSINOPHILS # (AUTO) 0.1 K/uL (0.0-0.4); HEMATOCRIT 33.2 % (36-54); LYMPHOCYTES # (AUTO) 0.6 K/uL (1.0-5.5); LYMPHOCYTES % (AUTO) 6.8 % (20.5-51.5); MEAN CORPUSCULAR HEMOGLOBIN 31 pg (27-31); MEAN CORPUSCULAR HGB CONC 33 % (32-36); MEAN CORPUSCULAR VOLUME 93 fL (79.0-98.0); MONOCYTES # (AUTO) 0.7 K/uL (0.0-1.0); MONOCYTES % (AUTO) 8.3 % (1.7-9.3); NEUTROPHILS # (AUTO) 7.4 K/uL (1.8-7.7); NEUTROPHILS % (AUTO) 83.6 % (40.0-70.0); PLATELET COUNT (AUTO) 150 K/uL (130-430); RED BLOOD CELL COUNT(AUTO) 3.56 MIL/uL (4.2-6.2); RED CELL DISTRIBUTION WIDTH 13.6 % (9.0-15.0); WHITE BLOOD COUNT (AUTO) 8.9 K/uL (4.8-10.8)
[2022-09-16 06:25] LABS: ANION GAP 6 (5-15); CHLORIDE 104 mmol/L (98-107); CREATININE 2.13 mg/dL (0.55-1.30); GLUCOSE 174 mg/dL (70-99); UREA NITROGEN, BLOOD 46 mg/dL (8-21)
[2022-09-16] MEDS: CHOLECALCIFEROL (VITAMIN D3) 2,000 UNIT TABLET PO SCH (08:56)
[2022-09-16] MEDS: PANTOPRAZOLE SODIUM 40 MG TAB PO SCH ×2 (08:56→20:43)
[2022-09-16] MEDS: DOCUSATE SODIUM 100 MG/10 ML UDC PO SCH ×2 (08:57→20:47)
[2022-09-16] MEDS: DEXAMETHASONE 1 MG TABLET (DECADRON) PO SCH (08:57)
[2022-09-16] MEDS: AMIODARONE HCL 200 MG TABLET PO SCH (08:59)
[2022-09-16] MEDS: TAMSULOSIN HCL 0.4 MG CAP PO SCH (20:45)
[2022-09-16] MEDS: ATORVASTATIN 10 MG TABLET PO SCH (20:45)
[2022-09-17] VITALS: BP_SYST 118
[2022-09-17 04:00] VITALS: BP_SYST 121
[2022-09-17 08:00] VITALS: BP_SYST 128
[2022-09-17] MEDS: PANTOPRAZOLE SODIUM 40 MG TAB PO SCH ×2 (08:45→20:13)
[2022-09-17] MEDS: AMIODARONE HCL 200 MG TABLET PO SCH (08:45)
[2022-09-17] MEDS: DOCUSATE SODIUM 100 MG/10 ML UDC PO SCH ×2 (08:45→20:13)
[2022-09-17] MEDS: CHOLECALCIFEROL (VITAMIN D3) 2,000 UNIT TABLET PO SCH (08:45)
[2022-09-17 12:00] VITALS: BP_SYST 132
[2022-09-17 16:00] VITALS: BP_SYST 129
[2022-09-17 20:00] VITALS: BP_SYST 126
[2022-09-17] MEDS: TAMSULOSIN HCL 0.4 MG CAP PO SCH (20:14)
[2022-09-17] MEDS: ATORVASTATIN 10 MG TABLET PO SCH (20:14)
[2022-09-18] VITALS: BP_SYST 127
[2022-09-18 08:00] VITALS: BP_SYST 117
[2022-09-18] MEDS: PANTOPRAZOLE SODIUM 40 MG TAB PO SCH ×2 (09:23→20:14)
[2022-09-18] MEDS: DOCUSATE SODIUM 100 MG/10 ML UDC PO SCH ×2 (09:23→20:13)
[2022-09-18] MEDS: CHOLECALCIFEROL (VITAMIN D3) 2,000 UNIT TABLET PO SCH (09:23)
[2022-09-18] MEDS: AMIODARONE HCL 200 MG TABLET PO SCH (09:23)
[2022-09-18 11:40] VITALS: BP_SYST 129
[2022-09-18 15:47] VITALS: BP_SYST 132
[2022-09-18 20:00] VITALS: BP_SYST 124
[2022-09-18] MEDS: TAMSULOSIN HCL 0.4 MG CAP PO SCH (20:14)
[2022-09-18] MEDS: ATORVASTATIN 10 MG TABLET PO SCH (20:14)
[2022-09-19] VITALS: BP_SYST 132
[2022-09-19 06:58] LABS: BASOPHILS % (AUTO) 0.2 % (0.0-2.0); EOSINOPHILS # (AUTO) 0.1 K/uL (0.0-0.4); EOSINOPHILS % (AUTO) 2.2 % (0.0-4.0); HEMATOCRIT 33.7 % (36-54); HEMOGLOBIN 11.1 g/dL (14.0-18.0); LYMPHOCYTES # (AUTO) 0.4 K/uL (1.0-5.5); LYMPHOCYTES % (AUTO) 6.6 % (20.5-51.5); MEAN CORPUSCULAR HEMOGLOBIN 31 pg (27-31); MEAN CORPUSCULAR HGB CONC 33 % (32-36); MEAN CORPUSCULAR VOLUME 94 fL (79.0-98.0); MONOCYTES # (AUTO) 0.4 K/uL (0.0-1.0); MONOCYTES % (AUTO) 5.7 % (1.7-9.3); NEUTROPHILS # (AUTO) 5.8 K/uL (1.8-7.7); NEUTROPHILS % (AUTO) 85.3 % (40.0-70.0); PLATELET COUNT (AUTO) 93 K/uL (130-430); RED CELL DISTRIBUTION WIDTH 14.1 % (9.0-15.0); WHITE BLOOD COUNT (AUTO) 6.8 K/uL (4.8-10.8)
[2022-09-19 07:05] LABS: CALCIUM 8.5 mg/dL (8.4-11.0); CHLORIDE 107 mmol/L (98-107); CREATININE 1.72 mg/dL (0.55-1.30); GLUCOSE 101 mg/dL (70-99); UREA NITROGEN, BLOOD 36 mg/dL (8-21)
[2022-09-19 08:59] LABS: ANION GAP < 3 (5-15)
[2022-09-19] MEDS: AMIODARONE HCL 200 MG TABLET PO SCH (09:00)
[2022-09-19 09:28] VITALS: BP_SYST 132
[2022-09-19] MEDS: DOCUSATE SODIUM 100 MG/10 ML UDC PO SCH (10:00)
[2022-09-19] MEDS: CHOLECALCIFEROL (VITAMIN D3) 2,000 UNIT TABLET PO SCH (10:01)
[2022-09-19] MEDS: PANTOPRAZOLE SODIUM 40 MG TAB PO SCH (10:01)
[2022-09-19 11:35] VITALS: BP_SYST 122
[2022-09-19 15:50] VITALS: BP_SYST 133
[2022-09-19 17:14] VITALS: BP_SYST 110
== END 2022-09-19 18:40 | DRG 871 ==
LOC: SED 12:51 → STU 15:53 → SMU 09-03 13:45
PROVIDERS: ADMIT Internal Medicine; ATTEND Internal Medicine
PROC: 05HY33Z Insertion of Infusion Device into Upper Vein, Percutaneous Approach (ICD-10-PCS; 2022-09-01)
PROC: B54NZZA Ultrasonography of Left Upper Extremity Veins, Guidance (ICD-10-PCS; 2022-09-01)
PROC: 05HY33Z Insertion of Infusion Device into Upper Vein, Percutaneous Approach (ICD-10-PCS; principal; 2022-09-02)
PROC: B54NZZA Ultrasonography of Left Upper Extremity Veins, Guidance (ICD-10-PCS; 2022-09-02)
DX: A41.9 Sepsis, unspecified organism (principal); E43 Unspecified severe protein-calorie malnutrition; U07.1 COVID-19; G93.41 Metabolic encephalopathy; J12.82 Pneumonia due to coronavirus disease 2019; J96.01 Acute respiratory failure with hypoxia; I13.0 Hypertensive heart and chronic kidney disease with heart failure and stage 1 through stage 4 chronic kidney disease, or unspecified chronic kidney disease; Z68.43 Body mass index [BMI] 50.0-59.9, adult; J44.1 Chronic obstructive pulmonary disease with (acute) exacerbation; J44.0 Chronic obstructive pulmonary disease with (acute) lower respiratory infection; E66.2 Morbid (severe) obesity with alveolar hypoventilation; N17.9 Acute kidney failure, unspecified; N18.4 Chronic kidney disease, stage 4 (severe); I42.9 Cardiomyopathy, unspecified; E46 Unspecified protein-calorie malnutrition; E11.22 Type 2 diabetes mellitus with diabetic chronic kidney disease; E78.5 Hyperlipidemia, unspecified; E87.5 Hyperkalemia; I25.10 Atherosclerotic heart disease of native coronary artery without angina pectoris; K76.9 Liver disease, unspecified; N28.1 Cyst of kidney, acquired; I50.9 Heart failure, unspecified; Z88.0 Allergy status to penicillin; Z79.899 Other long term (current) drug therapy; Z95.810 Presence of automatic (implantable) cardiac defibrillator; Z93.1 Gastrostomy status; Z92.3 Personal history of irradiation; Z91.199 Patient's noncompliance with other medical treatment and regimen due to unspecified reason; Z87.891 Personal history of nicotine dependence; Z85.46 Personal history of malignant neoplasm of prostate
CPT/HCPCS: 36415; 36600; 71045; 71250-TC; 76376; 76770; 80048; 80053; 80061; 81000; 82550; 82553; 82803-TC; 82962; 83605; 83735; 83880; 84100; 84439; 84443; 84484; 85025; 87040; 87086; 93005; 93306; 94664; 94760; 97110-GP; 97112-GP; 97116-GP; 97163-GP; 97530-GP; 99291; 99292; C1751; C9113; G0378; J1100; J1940; J1956; J7030; J7050; J8540; P9046